=== PATIENT | male | born 1955 | race Asian ===

== ENCOUNTER 2024-02-15 02:16 | Emergency (ER) | payer OTHER ==
[~2024-02-15] VITALS: Ht 165.1 cm; Wt 71.0 kg
[2024-02-15 02:24] VITALS: O2SAT 100
[2024-02-15] MEDS: TETANUS, DIPHTHERIA, PERTUSSIS VAC/PF 0.5ML (>10YR OLD) IM ONE (06:45)
[2024-02-15] MEDS: LIDOCAINE HCL 1% 20ML VIAL (Pyxis) INJ INFIL ONE (07:00)
[2024-02-15 07:43] VITALS: BP 128/78; PULSE 79; RESP 16; TEMP 97.6
== END 2024-02-15 07:43 | disposition home or self-care (01) ==
LOC: ER 02:16
DX: S81.011A Laceration without foreign body, right knee, initial encounter (principal); E11.9 Type 2 diabetes mellitus without complications; Z98.890 Other specified postprocedural states; W01.0XXA Fall on same level from slipping, tripping and stumbling without subsequent striking against object, initial encounter; Y93.89 Activity, other specified; Y92.89 Other specified places as the place of occurrence of the external cause; Y99.8 Other external cause status
CPT/HCPCS: 99283; 90715; 12001; 90471; J3490

== ENCOUNTER 2024-02-22 12:43 | Emergency (ER) | payer OTHER ==
[~2024-02-22] VITALS: Ht 167.6 cm; Wt 77.0 kg
[2024-02-22 12:57] VITALS: BP 143/72; PULSE 74; RESP 18; TEMP 97.9; O2SAT 98
== END 2024-02-22 14:09 | disposition home or self-care (01) ==
LOC: ER 12:43
DX: S81.011D Laceration without foreign body, right knee, subsequent encounter (principal); E11.9 Type 2 diabetes mellitus without complications; Z98.890 Other specified postprocedural states; X58.XXXD Exposure to other specified factors, subsequent encounter
CPT/HCPCS: 99281